=== PATIENT | female | born 1995 | race Caucasian/White ===

== ENCOUNTER 2019-09-28 21:19 | Emergency (ER) | payer MEDICAID, SELFPAY ==
[2019-09-28 21:21] VITALS: BP 136/69; PULSE 65; RESP 18; TEMP 36.9; O2SAT 100
--- NOTE | 2019-09-28 21:40 | ED.WOUNDLAC ---
HPI - Wound/Laceration General Chief Complaint: Wound/Laceration <Easton Wilson DO - Last Filed: 09/28/19 23:41> Stated Complaint: LAC <Easton Wilson DO - Last Filed: 09/28/19 23:41> Time Seen by Provider: 09/28/19 21:34 <Easton Wilson DO - Last Filed: 09/28/19 23:41> Source: RN notes reviewed <Easton Wilson DO - Last Filed: 09/28/19 23:41> History of Present Illness HPI narrative: Patient presents emergency room from home for right facial laceration. Patient states prior to arrival she was working in her car when the noman handle came back and struck her in the face. She states she was wearing glasses at that time causing a laceration to her right cheek she denies any other trauma or injury denies any pain of the eyelid denies loss of consciousness states she does not know about her last tetanus injection <Easton Wilson DO - Last Filed: 09/28/19 23:41> Related Data Allergies/Adverse Reactions: Allergies Allergy/AdvReac Type Severity Reaction Status Date / Time Penicillins AdvReac Unknown Unknown Verified 09/28/19 21:29 <Easton Wilson DO - Last Filed: 09/28/19 23:41> Review of Systems Review of Systems: Narrative: Gen.: Denies fevers or chills Eyes: Denies eye pain or visual change ENT: Denies facial pain Musculoskeletal: Denies neck pain Neuro: Denies loss of consciousness numbness or tingling Skin: See HPI <Easton Wilson DO - Last Filed: 09/28/19 23:41> PMFSH Past Medical History Medical History: Medical History (Updated 09/28/19 @ 22:38 by Easton Wilson DO) Patient denies significant medical history <Easton Wilson DO - Last Filed: 09/28/19 23:41> Family History Family History: Family History (Updated 11/23/15 @ 23:19 by DOCTOR UNKNOWN) Father Hypertension Family history of diabetes mellitus in first degree relative Sibling Family history of diabetes mellitus in first degree relative <Easton Wilson DO - Last Filed: 09/28/19 23:41> Social History Social History: Social History (Updated 09/28/19 @ 21:42 by Easton Wilson DO) Smoking status: Never smoker Alcohol intake: never <Easton Wilson DO - Last Filed: 09/28/19 23:41> Exam Narrative: Exam Narrative: APPEARANCE: No acute distress, nontoxic, resting in bed EYES: EOMI PERRL HEENT: Normocephalic, no tenderness of the right lower orbit nares patent no epistaxis or mucosa moist RESPIRATORY: No respiratory distress MUSCULOSKELETAl: Moves all extremities. NEURO: Awake and alert x 3. Following commands, speech normal, no focal deficits SKIN:: Warm, dry. The right cheek has two 1 cm vertical lacerations that are linear and deep with mild venous bleeding no foreign body PSYCHIATRIC: Normal affect/mood, <Easton Wilson DO - Last Filed: 09/28/19 23:41> Course Vital Signs Vital signs: Vital Signs Temperature 98.4 F 09/28/19 21:21 Pulse Rate 65 09/28/19 21:21 Respiratory Rate 18 09/28/19 21:21 Blood Pressure 136/69 09/28/19 21:21 Pulse Oximetry 100 09/28/19 21:21 Temperature 98.4 F 09/28/19 21:21 Pulse Rate 65 09/28/19 21:21 Respiratory Rate 18 09/28/19 21:21 Blood Pressure 136/69 09/28/19 21:21 Pulse Oximetry 100 09/28/19 21:21 <DO Rachel Dorman Last Filed: 09/28/19 23:41> Vital Signs Temperature 98.4 F 09/28/19 21:21 Pulse Rate 65 09/28/19 21:21 Respiratory Rate 18 09/28/19 21:21 Blood Pressure 136/69 09/28/19 21:21 Pulse Oximetry 100 09/28/19 21:21 Temperature 98.4 F 09/28/19 21:21 Pulse Rate 65 09/28/19 21:21 Respiratory Rate 18 09/28/19 21:21 Blood Pressure 136/69 09/28/19 21:21 Pulse Oximetry 100 09/28/19 21:21 <Shruti Bhakta PA-C - Last Filed: 09/28/19 23:17> Procedures Laceration Laceration 1: Date: 09/28/19 <Shruti Bhakta PA-C - Last Filed: 09/28/19 23:17> Time: 22:00 <Shruti Ibrahim H
--- NOTE | 2019-09-28 21:55 | PC.NURSE ---
SPRING Bahena in room at this time to suture patient.
[2019-09-28] MEDS: TETANUS,DIPHTHERIA,AC PERTUSSIS ADULT (0.5 ML) BOOSTRIX IM (22:17)
== END 2019-09-28 22:45 | disposition home or self-care (01) ==
PROVIDERS: Emergency Provider Emergency Medicine; PCP Family Medicine
DX: S01.411A Laceration without foreign body of right cheek and temporomandibular area, initial encounter (principal); W22.8XXA Striking against or struck by other objects, initial encounter; Z23 Encounter for immunization
CPT/HCPCS: 12013; 90471; 90715; 99282

== ENCOUNTER 2019-10-31 23:45 | Emergency (ER) | payer MEDICAID, SELFPAY ==
[2019-10-31 23:48] VITALS: BP 112/54; PULSE 72; RESP 15; TEMP 36.7; O2SAT 99
--- NOTE | 2019-11-01 01:15 | ED.SKABFB ---
HPI - Skin/Abscess/Foreign Bdy General Chief complaint: Skin/Abscess/Foreign Body Stated complaint: Rash Time Seen by Provider: 11/01/19 00:16 History of Present Illness HPI narrative: Patient is a 24-year-old female who presents the ER with rash. Ongoing for 6 days. Started in the left upper extremity but also involves the abdomen chest. Significantly pruritic. Develops blisters ruptures. No fevers or chills or sweats. No known environmental exposures. No new soaps/detergents/perfumes. No new mattresses in the home. Spares webspaces of the fingers. Has tried topical calamine lotion, topical Benadryl/hydrocortisone without relief. Related Data Allergies Allergy/AdvReac Type Severity Reaction Status Date / Time Penicillins AdvReac Unknown Unknown Verified 11/01/19 00:08 Review of Systems Constitutional: Constitutional: Denies fever(s) and Denies weakness Integumentary/Breasts: Skin/Breast: Reports pruritus and Reports rash PMFSH Past Medical History Medical History (Updated 11/01/19 @ 01:18 by Stan Sutheralnd MD) Patient denies significant medical history Family History Family History (Updated 11/23/15 @ 23:19 by DOCTOR UNKNOWN) Father Hypertension Family history of diabetes mellitus in first degree relative Sibling Family history of diabetes mellitus in first degree relative Social History Social History (Updated 09/28/19 @ 21:42 by Easton Wilson DO) Smoking status: Never smoker Alcohol intake: never Exam Narrative: Exam Narrative: GENERAL: Well-appearing, well-nourished, and in no acute distress. HEAD: Normocephalic, atraumatic. EXTREMITIES: Normal range of motion. No edema. SKIN: Warm, dry, maculopapular rash with ruptured vesicles but no intact vesicles scattered across the upper extremities laterally and then slight redness to the abdominal chest wall. Excoriations noted. There is linear area of rash as well to the left forearm. NEURO: Alert and oriented x3. PSYCH: Normal mood and affect. Course Course Emergency Course: Rash seems consistent with contact dermatitis as opposed to eczema/scabies/shingles. Will place on oral steroids and give Atarax for pruritus. Vital Signs Vital signs: Vital Signs Temperature 98.1 F 10/31/19 23:48 Pulse Rate 72 10/31/19 23:48 Respiratory Rate 15 10/31/19 23:48 Blood Pressure 112/54 L 10/31/19 23:48 Pulse Oximetry 99 10/31/19 23:48 Temperature 98.1 F 10/31/19 23:48 Pulse Rate 72 10/31/19 23:48 Respiratory Rate 15 10/31/19 23:48 Blood Pressure 112/54 L 10/31/19 23:48 Pulse Oximetry 99 10/31/19 23:48 Discharge Plan Discharge Clinical Impression: Contact dermatitis Patient Disposition: Home, Self-Care Condition: Stable Instructions: Contact Dermatitis (ED) Additional Instructions: Return the ER if you have fever over 100.4 ?F, you have chest pain or shortness of breath, your redness is worsening, you have additional concerns. Prescriptions: New prednisone 50 mg tablet 50 mg PO DAILY Qty: 8 RF: 0 hydroxyzine HCl 25 mg tablet 25 mg PO TID PRN (Reason: itching) Qty: 20 RF: 0 No Action escitalopram oxalate 10 mg tablet 10 mg PO DAILY Qty: 90 RF: 2 Follow-up/Referrals: Tyler Bell MD [Primary Care Provider] -
[2019-11-01] MEDS: hydrOXYzine HCL 25 MG TABLET PO (01:26)
[2019-11-01 01:27] VITALS: BP 121/75; PULSE 75; RESP 16; O2SAT 100
--- NOTE | 2019-11-01 01:27 | PC.NURSE ---
pt given medication to take at home.
== END 2019-11-01 01:28 | disposition home or self-care (01) ==
PROVIDERS: Emergency Provider Emergency Medicine; PCP Family Medicine
DX: L25.9 Unspecified contact dermatitis, unspecified cause (principal)
CPT/HCPCS: 99283; A9270

== ENCOUNTER 2020-09-17 13:26 | Outpatient (CLI) | payer BC, SELFPAY ==
--- NOTE | ~2020-09-17 | CT_ITS ---
EXAMINATION: CT abdomen pelvis wo/w con DATE: 09/17/2020 14:06 INDICATION: Bilateral flank pain. Dysuria. Nausea and vomiting. Fever. Hematuria. TECHNIQUE: Computed tomography (CT) of the abdomen and pelvis was performed without and with intraven ous contrast using a total of 130 mL Omnipaque-350 intravenous contrast with a double-bolus technique for simultaneous opacification of the renal parenchyma and renal collecting system. Automated exposu re control and iterative reconstruction technique were employed. The dose-length product was 2479.44 mGy-cm. COMPARISON: CT abdomen and pelvis 02/16/2015 FINDINGS: The visualized portions of the lung bases demonstrate minimal atelectasis. No pleural effusion. The h eart size is normal. No pericardial effusion. There is a small sliding hiatal hernia. The liver, gall bladder, spleen, pancreas, and adrenal glands are normal. There is a 9 mm cyst in left kidney. There is no urolithiasis. Right kidney demonstrates a striated nephrogram, consistent with pyelonephritis. 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 The left ureter is normal. There are no dilated loops of bowel. The appendix is normal. There are n o pathologically enlarged lymph nodes. There is no free intraperitoneal fluid. There is mild lumbar s pondylosis. IMPRESSION: 1. Right-sided pyelonephritis. 2. Small sliding hiatal hernia. Reviewed, dictated and finalized at location B.
--- NOTE | ~2020-09-17 | XR_ITS ---
EXAMINATION: XR abdomen/kub 1V INDICATION: Bilateral flank pain TECHNIQUE: Supine views of the abdomen were obtained on 2 radiographs. COMPARISON: 08/09/2008 FINDINGS: The bowel gas pattern is normal. There are no dilated loops of bowel. Flecks of hyperattenu ating material in the colon likely reflect an ingested medication. No urolithiasis is identified. The visualized osseous structures are unremarkable. IMPRESSION: 1. . No radiographic correlate for the patient's symptoms. Reviewed, dictated and finalized at location A.
[2020-09-17 14:41] LABS: Basophils Absolute Auto 0.1 K/mm3 (0.0-0.1); Basophils Percent Auto 0.4 % (0.2-1.2); Eosinophils Percent Auto 0.2 % (0-4.4); Hematocrit 33.5 % (37.0-47.0); Hemoglobin 10.9 g/dL (12.0-15.0); Immature Granulocyte Absolute 0.06 K/mm3 (0.00-0.031); Immature Granulocyte Percent A 0.5 % (0-0.5); Lymphocytes Absolute Auto 1.41 K/mm3 (0.9-3.2); Lymphocytes Percent Auto 10.9 % (18.3-44.2); Mean Corpuscular HGB Conc 32.5 g/dl (32-36); Mean Corpuscular Hemoglobin 27.5 pg (26-34); Mean Corpuscular Volume 84.4 fl (80-100); Monocytes Absolute Auto 1.3 K/mm3 (0.1-0.6); Monocytes Percent Auto 9.8 % (2.6-8.5); Neutrophils Absolute Auto 10.1 K/mm3 (1.3-6.7); Neutrophils Percent Auto 78.2 % (45.5-73.1); Platelet Count Result 312 k/mm3 (150-375); Red Blood Count 3.97 M/mm3 (4.2-5.4); Red Cell Distribution Width 14.4 % (11.5-14.5); White Blood Count 12.9 K/mm3 (4.5-10.0)
[2020-09-17 14:52] LABS: Alanine Aminotransferase 24 U/L (4-35); Albumin Level 3.7 g/dL (3.5-5.1); Alkaline Phosphatase 63 U/L (38-126); Anion Gap 6 mmol/L (8-16); Aspartate Amino Transferase 24 U/L (14-36); Bilirubin,Total 0.3 mg/dL (0.2-1.3); Blood Urea Nitrogen 12 mg/dL (7-17); Calcium 8.7 mg/dL (8.4-10.2); Carbon Dioxide 28 mmol/L (22-30); Chloride 100 mmol/L (98-107); Estimated Glomerular Filt Rate > 60; Glucose 92 mg/dL (65-105); Potassium 4.4 mmol/L (3.4-5.0); Sodium 134 mmol/L (137-145)
== END 2020-09-17 13:27 | disposition home or self-care (01) ==
PROVIDERS: PCP Family Medicine; Visit Provider Nurse Practitioner Family
DX: R31.9 Hematuria, unspecified (principal); R10.9 Unspecified abdominal pain; K44.9 Diaphragmatic hernia without obstruction or gangrene; N12 Tubulo-interstitial nephritis, not specified as acute or chronic
CPT/HCPCS: 36415; 74018; 74178; 80053; 85025; Q9967

== ENCOUNTER 2020-10-03 16:06 | Outpatient (CLI) | payer BC, SELFPAY ==
[2020-10-03 16:42] LABS: Basophils Absolute Auto 0.1 K/mm3 (0.0-0.1); Basophils Percent Auto 0.6 % (0.2-1.2); Eosinophils Absolute Auto 0.1 K/mm3 (0-0.3); Eosinophils Percent Auto 1.1 % (0-4.4); Hematocrit 37.8 % (37.0-47.0); Hemoglobin 12.1 g/dL (12.0-15.0); Immature Granulocyte Absolute 0.02 K/mm3 (0.00-0.031); Immature Granulocyte Percent A 0.2 % (0-0.5); Lymphocytes Percent Auto 26.7 % (18.3-44.2); Mean Corpuscular Hemoglobin 27.3 pg (26-34); Mean Corpuscular Volume 85.3 fl (80-100); Mean Platelet Volume 9.9 fl (7.4-10.4); Monocytes Absolute Auto 0.6 K/mm3 (0.1-0.6); Monocytes Percent Auto 6.7 % (2.6-8.5); Neutrophils Absolute Auto 6.1 K/mm3 (1.3-6.7); Neutrophils Percent Auto 64.7 % (45.5-73.1); Platelet Count Result 460 k/mm3 (150-375); Red Blood Count 4.43 M/mm3 (4.2-5.4); White Blood Count 9.4 K/mm3 (4.5-10.0)
[2020-10-03 16:51] LABS: Anion Gap 11 mmol/L (8-16); Blood Urea Nitrogen 17 mg/dL (7-17); Calcium 9.1 mg/dL (8.4-10.2); Carbon Dioxide 24 mmol/L (22-30); Chloride 107 mmol/L (98-107); Estimated Glomerular Filt Rate > 60; Glucose 84 mg/dL (65-105); Potassium 4.2 mmol/L (3.4-5.0); Sodium 142 mmol/L (137-145)
== END 2020-10-03 16:07 | disposition home or self-care (01) ==
PROVIDERS: PCP Family Medicine; Visit Provider Nurse Practitioner Family
DX: N28.1 Cyst of kidney, acquired (principal); R31.29 Other microscopic hematuria
CPT/HCPCS: 36415; 80048; 85025

== ENCOUNTER 2020-10-13 08:09 | Outpatient (CLI) | payer BC, SELFPAY ==
--- NOTE | ~2020-10-13 | US_ITS ---
EXAMINATION: US renal BI DATE: 10/13/2020 08:33 INDICATION: Acquired cyst of the kidney TECHNIQUE: CT, 09/17/2020 COMPARISON: None. FINDINGS: The right kidney measures 11.9 x 6.8 x 4.8 cm. The left kidney measures 10.4 x 5.9 x 5.8 cm and contains an 8 mm cyst. The kidneys demonstrate normal parenchymal echogenicity. There is no hydr onephrosis. The bladder is normal. IMPRESSION: 1. 8 mm cyst of the left kidney, otherwise unremarkable examination. Reviewed, dictated and finalized at location A.
== END 2020-10-13 08:10 | disposition home or self-care (01) ==
PROVIDERS: PCP Family Medicine; Visit Provider Nurse Practitioner Family
DX: N28.1 Cyst of kidney, acquired (principal)
CPT/HCPCS: 76775

== ENCOUNTER 2021-04-09 20:08 | Emergency (ER) | payer BC, SELFPAY ==
[2021-04-09 20:24] VITALS: BP 131/71; PULSE 106; RESP 16; TEMP 37.2; O2SAT 99
[2021-04-09 23:40] VITALS: BP 137/79; PULSE 72; RESP 16; TEMP 36.9; O2SAT 100
[2021-04-10 00:46] LABS: Basophils Percent Auto 0.3 % (0.2-1.2); Eosinophils Absolute Auto 0.1 K/mm3 (0-0.3); Eosinophils Percent Auto 0.7 % (0-4.4); Hematocrit 41.3 % (37.0-47.0); Hemoglobin 13.5 g/dL (12.0-15.0); Immature Granulocyte Absolute 0.04 K/mm3 (0.00-0.031); Immature Granulocyte Percent A 0.3 % (0-0.5); Lymphocytes Absolute Auto 2.97 K/mm3 (0.9-3.2); Lymphocytes Percent Auto 25.2 % (18.3-44.2); Mean Corpuscular HGB Conc 32.7 g/dl (32-36); Mean Corpuscular Hemoglobin 28.1 pg (26-34); Mean Platelet Volume 10.1 fl (7.4-10.4); Monocytes Absolute Auto 0.5 K/mm3 (0.1-0.6); Monocytes Percent Auto 4.6 % (2.6-8.5); Neutrophils Absolute Auto 8.1 K/mm3 (1.3-6.7); Neutrophils Percent Auto 68.9 % (45.5-73.1); Platelet Count Result 331 k/mm3 (150-375); White Blood Count 11.8 K/mm3 (4.5-10.0)
--- NOTE | 2021-04-10 00:56 | ED.ABDPAIN ---
HPI - Abdominal Pain General Chief Complaint: Abdominal Pain Stated Complaint: abd pain Time Seen by Provider: 04/10/21 00:08 Source: patient History of Present Illness HPI narrative: Patient presents with pain around her umbilicus reports some nausea. She also reports some bloody discharge from her bellybutton. Her pain is achy, constant, worse with pushing on the area, no radiation. She was concerned regarding the discharge she was came to ER for evaluation. She denies fevers or diarrhea Related Data Allergies Allergy/AdvReac Type Severity Reaction Status Date / Time Penicillins AdvReac Unknown Unknown Verified 02/06/21 08:47 Review of Systems Review of Systems: CONSTITUTIONAL: Denies fever, chills, or sweats. EYES: Denies visual changes, redness, or discharge. ENT: Denies rhinorrhea, congestion, sore throat, or otalgia. CARDIOVASCULAR: Denies chest pain, palpitations, or edema. RESPIRATORY: Denies cough or dyspnea. GASTROINTESTINAL: Reports abdominal pain and nausea GENITOURINARY: Denies dysuria or hematuria. SKIN: Denies rash or itching. MUSCULOSKELETAL: Denies back pain, joint pain, or myalgia. NEUROLOGIC: Denies headache, numbness, dizziness, or weakness. PSYCHIATRIC: Denies anxiety or depression. 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 HEAD: Normocephalic, atraumatic. EYES: PERRLA and EOMI. ENT: Nares clear, no rhinorrhea or epistaxis. Mucous membranes moist. NECK: Supple. No masses. No JVD ABDOMEN: Mild tenderness palpation around the umbilicus there is yellow serosanguineous discharge from the umbilicus and erythema in the umbilicus soft, nondistended EXTREMITIES: Normal range of motion. No edema. SKIN: Warm, dry, no rash. NEURO: No focal deficits. Alert and oriented x3. PSYCH: Normal mood and affect. Course Reevaluation(s) Reevaluation #1: Patient resting comfortably results and plan reviewed with patient. Patient comfortable outpatient plan. Date: 04/10/21 Time: 01:58 Vital Signs Vital signs: Vital Signs Temperature 37.2 C 04/09/21 20:24 Pulse Rate 106 H 04/09/21 20:24 Respiratory Rate 16 04/09/21 20:24 Blood Pressure 131/71 04/09/21 20:24 Pulse Oximetry 99 04/09/21 20:24 Temperature 36.9 C 04/09/21 23:40 Pulse Rate 88 04/10/21 02:11 Respiratory Rate 18 04/10/21 02:11 Blood Pressure 118/78 04/10/21 02:11 Pulse Oximetry 98 04/10/21 02:11 MDM - Abdominal Pain MDM Narrative Medical decision making narrative: H&P as above, vss, pt looks clinically well, exam with yellow drainage and erythema in the umbilicus, labs clinically unremarkable, additional labs/img considered, symptomatic relief available as needed, on reevaluation pt continues to looks clinically well. Suspect soft tissue infection such as cellulitis, dns abscess, severe sepsis and severe dehydration. plan to tx/monitor as op w/ pcm f/u findings/plan discussed with pt, pt agree/comfortable with plan, return precautions given Lab Data Result diagrams: 04/10/21 00:42
[2021-04-10 01:34] LABS: Alanine Aminotransferase 27 U/L (4-35); Albumin Level 4.6 g/dL (3.5-5.1); Alkaline Phosphatase 60 U/L (38-126); Anion Gap 13 mmol/L (8-16); Aspartate Amino Transferase 24 U/L (14-36); Bilirubin,Total 0.6 mg/dL (0.2-1.3); Blood Urea Nitrogen 12 mg/dL (7-17); Calcium 9.6 mg/dL (8.4-10.2); Carbon Dioxide 26 mmol/L (22-30); Chloride 104 mmol/L (98-107); Estimated CRCL calculation 117 ml/min; Estimated Glomerular Filt Rate > 60; Glucose 97 mg/dL (65-110); Lipase 121 U/L (23-300); Potassium 3.7 mmol/L (3.4-5.0); Sodium 143 mmol/L (137-145)
[2021-04-10 02:11] VITALS: BP 118/78; PULSE 88; RESP 18; O2SAT 98
== END 2021-04-10 02:12 | disposition home or self-care (01) ==
PROVIDERS: Emergency Provider Emergency Medicine; PCP Family Medicine
DX: L03.316 Cellulitis of umbilicus (principal); F17.210 Nicotine dependence, cigarettes, uncomplicated
CPT/HCPCS: 36415; 80053; 83690; 85025; 99283

== ENCOUNTER 2023-10-19 20:21 | Emergency (ER) | payer SELFPAY ==
[2023-10-19] VITALS (7 sets, daily range): BP systolic 106–134; BP diastolic 71–93; PULSE 81; RESP 16; TEMP 36.9; O2SAT 98–100
--- NOTE | ~2023-10-19 | CT_ITS ---
CT of the Abdomen and Pelvis: Indication: Pyelonephritis Technique: 2.5 mm axial scans were obtained through the abdomen and pelvis following intravenous adm inistration of 100 cc of Omnipaque 350. Dose reduction technique was used on this scan by utilizing a utomated exposure control and iterative reconstruction technique. The dose-length product (DLP) was 9 94.70 mGy-cm. COMPARISON: 09/17/2020 Findings: Scans through the lung bases are unremarkable. The liver, spleen, pancreas, gallbladder, adrenals and kidneys are within normal limits. No evidence of aortic aneurysm. No lymphadenopathy. No bowel obstruction or bowel wall thickening. There is no evidence to suggest acute appendicitis. Images through the pelvis were performed. Urinary bladder unremarkable. Probable small left ovarian c yst. No ascites. Impression: Small left ovarian cyst, which requires no further follow-up. No other significant findings. Reviewed, dictated and finalized at [facility]. Impression: Small left ovarian cyst, which requires no further follow-up. No other significant findings.
[2023-10-19 20:48] LABS: Basophils Percent Auto 0.4 % (0.2-1.2); Eosinophils Absolute Auto 0.4 K/mm3 (0-0.3); Eosinophils Percent Auto 3.3 % (0-4.4); Hematocrit 41.3 % (37.0-47.0); Hemoglobin 13.7 g/dL (12.0-15.0); Immature Granulocyte Absolute 0.03 K/mm3 (0.00-0.031); Immature Granulocyte Percent A 0.3 % (0-0.5); Lymphocytes Absolute Auto 2.76 K/mm3 (0.9-3.2); Mean Corpuscular HGB Conc 33.2 g/dl (32-36); Mean Corpuscular Hemoglobin 28.4 pg (26-34); Mean Corpuscular Volume 85.7 fl (80-100); Mean Platelet Volume 10.1 fl (7.4-10.4); Monocytes Absolute Auto 0.6 K/mm3 (0.1-0.6); Monocytes Percent Auto 5.4 % (2.6-8.5); Neutrophils Absolute Auto 7.3 K/mm3 (1.3-6.7); Neutrophils Percent Auto 65.6 % (45.5-73.1); Platelet Count Result 328 k/mm3 (150-375); Red Blood Count 4.82 M/mm3 (4.2-5.4); Red Cell Distribution Width 14.4 % (11.5-14.5); White Blood Count 11.1 K/mm3 (4.5-10.0)
[2023-10-19 21:04] LABS: Alanine Aminotransferase 13 U/L (6-35); Albumin Level 4.8 g/dL (3.5-5.1); Alkaline Phosphatase 57 U/L (38-126); Anion Gap 10 mmol/L (4-12); Aspartate Amino Transferase 20 U/L (14-36); Bilirubin,Total 0.8 mg/dL (0.2-1.3); Blood Urea Nitrogen 19 mg/dL (7-17); Calcium 9.3 mg/dL (8.4-10.2); Carbon Dioxide 25 mmol/L (22-30); Chloride 106 mmol/L (98-107); Estimated CRCL calculation 104 ml/min; Estimated Glomerular Filt Rate > 60; Glucose 92 mg/dL (65-110); Lipase 158 U/L (23-300); Potassium 3.7 mmol/L (3.4-5.0); Sodium 141 mmol/L (137-145)
[2023-10-19 21:11] LABS: Appearance Urine Clear (Clear); Bacteria Urine 3+ /hpf; Bilirubin Urine Negative (Negative); Blood Urine Negative (Negative); Color Urine Yellow (Yellow); Glucose Urine UA Negative (Negative); Ketones Urine Negative (Negative); Leukocyte Esterase Ur Negative LEU/UL (Negative); Mucus Urine Present /lpf; Need Manual Microscopic Reviewed; Nitrate Urine Negative (Negative); Protein Urine Trace mg/dL (Negative); Squamous Epithelial Cell Urine Few /hpf (Few); Urobilinogen Urine 0.2 mg/dL (<2.0)
[2023-10-19 21:14] LABS: Add Urine Microscopic? YES; Specific Grav Ur 1.032 (1.001-1.035)
--- NOTE | 2023-10-19 23:13 | ED.NAVMDI ---
HPI - Nausea/Vomiting/Diarrhea General Chief complaint: Nausea/Vomiting/Diarrhea Stated complaint: vomiting Time Seen by Provider: 10/19/23 22:40 Source: patient Mode of arrival: ambulatory Limitations: no limitations History of Present Illness HPI Narrative: Patient presents report of epigastric (initially reported as low from triage note) abdominal pain approximately 2 days duration. This has been accompanied by multiple episodes of nausea vomiting. She states some of her emesis has been blood tinged. 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 She notes that the blood-tinged emesis been present since 12 noon. She is also having flank pain. Denies any hematuria. She notes that she has a history of kidney stones kidney infection but denies any previous blood-tinged emesis. No prior EGD and does not follow with the gage maker. Denies marijuana use. Occasional alcohol use. Denies NSAIDs. No fever. She denies any diarrhea or bloody stool though at baseline does state that she is intermittently constipated with infrequent stooling. She denies any vaginal bleeding or discharge. Her last menstrual period was approximately 3-4 weeks ago. No sick contacts. No history of heart failure liver disease. Related Data Allergies Allergy/AdvReac Type Severity Reaction Status Date / Time Penicillins AdvReac Unknown Unknown Verified 10/20/23 00:43 [facility] Past Medical History Medical History History of kidney infection History of renal stone Family History Family History Father Hypertension Family history of diabetes mellitus in first degree relative Sibling Family history of diabetes mellitus in first degree relative Mother PCOS (polycystic ovarian syndrome) Social History Social History Tobacco type: cigarettes and e-cigarettes/vaping Second hand tobacco smoke exposure: No Alcohol intake: former Substance use: never Substance use type: does not use Living arrangements: with family Occupation/Education: occupation 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 HEAD: Normocephalic, atraumatic. EYES: Non injected, non icteric ENT: Nares clear, no rhinorrhea or epistaxis. Moist mucous membranes. NECK: Supple. CHEST: Speaking in full sentences. No respiratory distress. HEART: Regular rate and rhythm. . ABDOMEN/GI: Soft, nondistended. Non tender to palpation throughout abdomen. Rectal exam performed with RN crushed stone grader Denisse present. Normal rectal tone. Normal appearing stool. No melena. FOBT/guaiac negative. : Bilateral CVA tenderness to palpation. EXTREMITIES: Normal range of motion. No edema. SKIN: Warm, dry, no rash. NEURO: No focal deficits. Alert and oriented x3. PSYCH: Normal mood and affect. Course Vital Signs Vital signs: Vital Signs Temperature 98.4 F 10/19/23 20:24 Pulse Rate 81 10/19/23 20:24 Respiratory Rate 16 10/19/23 20:24 Blood Pressure 134/71 10/19/23 20:24 Pulse Oximetry 98 10/19/23 20:24 Oxygen Delivery Room Air 10/19/23 20:24 Temperature 98.6 F 10/20/23 04:23 Pulse Rate 67 10/20/23 04:23 Respiratory Rate 16 10/20/23 04:23 Blood Pressure 112/67 10/20/23 04:23 Pulse Oximetry 97 10/20/23 04:23 Oxygen Delivery Room Air 10/19/23 20:24 MDM - Nausea/Vomiting/Diarrhea MDM Narrative Medical decision making narrative: Patient presents with report nausea and vomiting with some more recent episodes of emesis blood tinged. She is also complaining of epigastric abdominal pain and bilateral flank pain. In the emergency department she is afebri
[2023-10-19] MEDS: ONDANSETRON INJ 4 MG/2 ML VIAL IV PUSH (23:22)
[2023-10-19] MEDS: PANTOPRAZOLE SODIUM IV 40 MG VIAL 80 MG IV PUSH (23:22)
[2023-10-19] MEDS: SODIUM CHLORIDE 0.9% IV 1,000 ML 999 ML IV CONT (23:22)
[2023-10-19] MEDS: MORPHINE SULFATE (*CRX) 2 MG/ML INJ IV PUSH (23:48)
[2023-10-19 23:49] LABS: Pregnancy On Board Control Positive; Urine Pregnancy Test Negative
[2023-10-20] VITALS (23 sets, daily range): BP systolic 100–126; BP diastolic 58–73; PULSE 67; RESP 16; TEMP 37; O2SAT 96–100
[2023-10-20 00:24] LABS: Magnesium 2.1 mg/dL (1.6-2.3)
[2023-10-20 00:26] LABS: Amphetamine Screen Urine Negative (Negative); Barbiturate Screen Urine Negative (Negative); Benzodiazepines Screen Urine Negative (Negative); Cannabinoid Screen Urine Negative (Negative); Cocaine Screen Urine Negative (Negative); Methadone Screen Urine Negative (Negative); Opiate Screen Urine Negative (Negative); Phencyclidine Screen Urine Negative (Negative)
[2023-10-20 00:28] LABS: Influenza A QL RT-PCR Negative (Negative); Influenza B QL RT-PCR Negative (Negative); SARS-CoV-2 RNA PCR Negative (Negative)
--- NOTE | 2023-10-20 00:48 | PC.NURSE ---
double checked with pharmacy that Rocephin medication is ok to give with pcn allergy.
[2023-10-20] MEDS: HYDROmorphone HCL INJ (*CRX) 1 MG/ML SYR 0.5 MG IV PUSH (02:37)
== END 2023-10-20 04:25 | disposition home or self-care (01) ==
PROVIDERS: Emergency Provider Student in an Organized Health Care Education/Training Program; PCP Family Medicine
DX: N12 Tubulo-interstitial nephritis, not specified as acute or chronic (principal); K57.90 Diverticulosis of intestine, part unspecified, without perforation or abscess without bleeding; N83.202 Unspecified ovarian cyst, left side; R11.2 Nausea with vomiting, unspecified; D72.829 Elevated white blood cell count, unspecified; Z20.822 Contact with and (suspected) exposure to COVID-19; Z87.442 Personal history of urinary calculi
CPT/HCPCS: 36415; 74177; 80053; 80307; 81001; 81025; 83690; 83735; 85025; 87077; 87086; 87088; 87181; 87636; 96361; 96365; 96374; 96375; 99284; C9113; J0696; J1170; J2270; J2405; J7030; Q9967

== ENCOUNTER 2024-06-02 18:55 | Emergency (ER) | payer MEDICAID, SELFPAY ==
[2024-06-02 19:35] VITALS: BP 114/49; PULSE 94; RESP 18; TEMP 37.7; O2SAT 99
[2024-06-02 20:20] LABS: Influenza A QL RT-PCR Positive (Negative); Influenza B QL RT-PCR Negative (Negative); RSV RNA, RT-PCR Negative (Negative); SARS-CoV-2 RNA PCR Negative (Negative)
--- NOTE | 2024-06-02 20:23 | ED_ITS ---
HPI - URI/Sore Throat General Chief Complaint: Upper Respiratory Infection Stated Complaint: fever, cough, congestion 24 hours Time Seen by Provider: 06/02/24 20:21 Source: patient Mode of arrival: ambulatory Limitations: no limitations History of Present Illness HPI Narrative: This is a 29-year-old female who presents to the ED for chief complaint of leg symptoms over the past 24 hours. Endorses cough, congestion fevers. States feels like she got hit by a truck and has generalized body aches. Denies chest pain, shortness of breath, nausea, vomiting. Related Data Allergies Allergy/AdvReac Type Severity Reaction Status Date / Time Penicillins AdvReac Unknown Unknown Verified 06/02/24 18:56 Review of Systems Review of Systems: All systems as dictated in HPI [facility] Past Medical History Medical History History of kidney infection History of renal stone Family History Family History Father Hypertension Family history of diabetes mellitus in first degree relative Sibling Family history of diabetes mellitus in first degree relative Mother PCOS (polycystic ovarian syndrome) Social History Social History Smoking status: Former smoker Tobacco type: cigarettes and e-cigarettes/vaping Second hand tobacco smoke exposure: No Alcohol intake: former Substance use: never Substance use type: does not use Living arrangements: with family Occupation/Education: occupation 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 HEAD: Normocephalic, atraumatic. EYES: PERRLA and EOMI. ENT: Nares clear, no rhinorrhea or epistaxis. Mucous membranes moist. Oropharynx without tonsillar hypertrophy exudate or other lesions. NECK: Supple. No adenopathy or masses. CHEST: No respiratory distress. Clear to auscultation. No wheezes rales or rhonchi HEART: Regular rate and rhythm. No murmur heard. Normal peripheral pulses. ABDOMEN: Soft, nontender, nondistended, normal active bowel sounds. MSK: Normal range of motion. No edema. SKIN: Warm, dry, no rash. NEURO: Alert and oriented x4. No focal deficits. PSYCH: Normal mood and affect. Course Vital Signs Vital signs: Vital Signs Temperature 99.8 F H 06/02/24 19:35 Pulse Rate 94 06/02/24 19:35 Respiratory Rate 18 06/02/24 19:35 Blood Pressure 114/49 L 06/02/24 19:35 Pulse Oximetry 99 06/02/24 19:35 Oxygen Delivery Room Air 06/02/24 19:35 Temperature 99.8 F H 06/02/24 19:35 Pulse Rate 94 06/02/24 19:35 Respiratory Rate 18 06/02/24 19:35 Blood Pressure 114/49 L 06/02/24 19:35 Pulse Oximetry 99 06/02/24 19:35 Oxygen Delivery Room Air 06/02/24 19:35 MDM - URI/Sore Throat MDM Narrative Medical decision making narrative: This is a 29-year-old female who presents to the ED for flu-like symptoms. Vitals are normal. Exam is unremarkable. Viral swabs are positive for influenza A. She is within the therapeutic window for Tamiflu. She is electing to proceed with Tamiflu prescription today. Patient will be discharged in stable condition. Supportive measures discussed and return precautions given. Patient is understanding and agreeable with plan for discharge with PCP follow-up. Lab Data Labs: Lab Results 06/02/24 Range/Units 19:39 Influenza A (RT-PCR) Positive A (Negative) Influenza B (RT-PCR) Negative (Negative) RSV (RT-PCR) Negative (Negative) SARS-CoV-2 RNA (RT-PCR) Negative (Negative) Discharge Plan Discharge Clinical Impression: Influenza Patient Disposition: Home, Self-Care Condition: Stable Instructions: Antibiotic Form, Influenza (ED) Additional Instructions: If you have any new or worsening symptoms please return to the ER for further evaluation. Patient Language: Malian Prescriptions: New oseltamivir [Tamiflu] 75 mg capsule 75 mg PO Q12H 5 Days Qty: 10 0RF No Action sertraline 50 mg tablet 50 mg PO DAILY Qty: 90 0RF Follow-up/Referrals: Tyler Bell MD [Primary Care Provider] - Time of Disposition: 20:40
== END 2024-06-02 21:00 | disposition home or self-care (01) ==
LOC: ANHED 20:45
PROVIDERS: Emergency Medicine; Emergency Provider Physician Assistant; PCP Family Medicine
DX: J10.1 Influenza due to other identified influenza virus with other respiratory manifestations (principal); Z20.822 Contact with and (suspected) exposure to COVID-19; Z87.442 Personal history of urinary calculi; Z87.440 Personal history of urinary (tract) infections; Z87.891 Personal history of nicotine dependence
CPT/HCPCS: 87637; 99283